=== PATIENT | female | born 1945 ===

== ENCOUNTER 2018-02-18 06:00 | Day surgery (SDC) | payer OTHER ==
[~2018-02-18 06:00] MED LIST: ASA81 MG PO; CARDIZEM CD240 MG PO; GABAPENTIN300 MG PO; LOSARTAN POTASS50 MG PO
[2018-02-18] MEDS ORDERED: ULTRACET PO (08:35)
[2018-02-18] MEDS ORDERED: MACROBID 100 M100 MG PO (08:35)
== END 2018-02-18 12:10 | disposition home or self-care (01) ==
LOC: CIR.AMB 06:00
DX: N81.11 Cystocele, midline (principal)